=== PATIENT | male | born 1990 | race African-American/Black ===

== ENCOUNTER 2017-04-11 00:55 | Emergency (ER) | payer OTHER, SELFPAY ==
[2017-04-11] MEDS ORDERED: HYDROcodone/Acetaminophen 5/325 mg Tablet ONE (02:08)
[2017-04-11] MEDS ORDERED: Insulin Regular 300 UNITS/3 ML VIAL ONE (03:58)
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
== END 2017-04-11 02:30 | disposition home or self-care (01) ==
LOC: ERS 00:55
DX: S06.0X9A Concussion with loss of consciousness of unspecified duration, initial encounter (principal); S16.1XXA Strain of muscle, fascia and tendon at neck level, initial encounter; V89.2XXA Person injured in unspecified motor-vehicle accident, traffic, initial encounter
CPT/HCPCS: 70450; 72125; J1815